=== PATIENT | female | born 1995 ===

== ENCOUNTER 2017-08-12 22:46 | Emergency (ER) | payer SELFPAY ==
[2017-08-12 23:34] VITALS: BP 107/58; PULSE 56; RESP 18; TEMP 98; O2SAT 99
[2017-08-12] MEDS ORDERED: Oxycodone/Acetaminophen 5/325 mg Tab PO STA (23:38)
--- NOTE | 2017-08-12 23:40 | ED PDOC ---
HPI: Skin/Bite Injury Time Seen by Provider: 08/12/17 22:58 Chief Complaint (Nursing): Bite Chief Complaint (Provider): Laceration History Per: Patient Additional Complaint(s): Pt is a 22 yo female, no PMH, presents to ED for evaluation of laceration. Pt reports dog bite to right lip an hour ago. The dog belongs to the patient, reports Dog last had rabies vaccine 2 yrs ago. (+) flat, superficial open, circular wound to right upper lip, skin ripped off. No active bleeding. Past Medical History Reviewed: Nursing Documentation, Vital Signs Vital Signs: Last Vital Signs Temp 98.0 F 08/12/17 23:08 Pulse 56 L 08/12/17 23:08 Resp 18 08/12/17 23:08 BP 107/58 L 08/12/17 23:08 Pulse Ox 99 08/12/17 23:40 - Medical History PMH: No Chronic Diseases - Surgical History Surgical History: No Surg Hx - Family History Family History: States: No Known Family Hx - Living Arrangements Living Arrangements: With Family - Social History Current smoker - smoking cessation education provided: No Alcohol: None Drugs: Denies - Home Medications Home Medications: Ambulatory Orders Medication Instructions Recorded Amoxicillin [Amoxil 500 mg Cap] 500 mg PO BID #14 cap 08/13/17 Ibuprofen [Motrin] 600 mg PO Q6 #20 tab 08/13/17 - Allergies Allergies/Adverse Reactions: Allergies Allergy/AdvReac Type Severity Reaction Status Date / Time No Known Allergies Allergy Verified 08/12/17 23:08 Review of Systems ROS Statement: Except As Marked, All Systems Reviewed And Found Negative Skin: Positive for: Other (laceration) Physical Exam - Reviewed Nursing Documentation Reviewed: Yes Vital Signs Reviewed: Yes - Physical Exam Appears: Positive for: Well, Non-toxic, No Acute Distress Head Exam: Positive for: ATRAUMATIC, NORMAL INSPECTION, NORMOCEPHALIC Skin: Positive for: Normal Color, Warm Eye Exam: Positive for: EOMI, Normal appearance, PERRL ENT: Positive for: Normal ENT Inspection Neck: Positive for: Normal, Painless ROM Cardiovascular/Chest: Positive for: Regular Rate, Rhythm Respiratory: Positive for: CNT, Normal Breath Sounds Gastrointestinal/Abdominal: Positive for: Normal Exam, Bowel Sounds, Soft Back: Positive for: Normal Inspection Extremity: Positive for: Normal ROM Neurologic/Psych: Positive for: Alert, Oriented Comments: (+) 2cm circular avulsion laceration noted to right upper lip, extending minimally above vermil[place] boarder. No active bleed - ECG O2 Sat by Pulse Oximetry: 99 Medical Decision Making Medical Decision Making: Suture repair not clinically indicated at this time wound care discussed. Pt referred to Dr. Grey for follow up. Disposition - Clinical Impression Clinical Impression: Animal bite wound - Patient ED Disposition Is Patient to be Admitted: No - Disposition Disposition: Routine/Home Disposition Time: 23:45 Condition: STABLE Prescriptions: Amoxicillin [Amoxil 500 mg Cap] 500 mg PO BID #14 cap Ibuprofen [Motrin] 600 mg PO Q6 #20 tab Instructions: Animal Bite (ED) Forms: [employer] (Mauritanian)
[2017-08-12] MEDS ORDERED: Oxycodone/Acetaminophen 5/325 mg Tab ONE (23:45)
== END 2017-08-13 01:18 | disposition home or self-care (01) ==
LOC: H.ER 22:46
DX: S01.511A Laceration without foreign body of lip, initial encounter (principal); W54.0XXA Bitten by dog, initial encounter; Y92.89 Other specified places as the place of occurrence of the external cause

== ENCOUNTER 2017-12-12 00:35 | Emergency (ER) | payer SELFPAY ==
[2017-12-12 01:26] VITALS: PULSE 65; RESP 16; TEMP 98; O2SAT 98
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
[2017-12-12 04:25] VITALS: BP 120/76
--- NOTE | 2017-12-12 10:04 | RAD ---
PROCEDURE: Radiographs of the Lumbar Spine. HISTORY: fall COMPARISON: No prior. FINDINGS: BONES: Normal alignment. No listhesis. No fracture. DISC SPACES: Unremarkable. OTHER FINDINGS: None. IMPRESSION: Unremarkable radiographs of the lumbar spine.
== END 2017-12-12 04:24 | disposition home or self-care (01) ==
LOC: H.ER 00:35
DX: S09.90XA Unspecified injury of head, initial encounter (principal); W19.XXXA Unspecified fall, initial encounter; Y92.89 Other specified places as the place of occurrence of the external cause